=== PATIENT | male | born 1965 | race Two or more races ===

== ENCOUNTER 2019-08-30 12:02 | Emergency (ER) | payer MEDICAID ==
[~2019-08-30] VITALS: Ht 160 cm; Wt 78.0 kg
[2019-08-30] MEDS ORDERED: HYDROCODONE/ACETAMINOPHEN 5/325MG TABLET PO ONE (15:15)
[2019-08-30] MEDS ORDERED: ONDANSETRON 4MG ODT PO ONE (15:15)
[2019-08-30 16:23] VITALS: BP 126/89
== END 2019-08-30 17:04 | disposition home or self-care (01) ==
LOC: ER 12:02
DX: S09.8XXA Other specified injuries of head, initial encounter (principal); S40.011A Contusion of right shoulder, initial encounter; S20.219A Contusion of unspecified front wall of thorax, initial encounter; V43.72XA Person on outside of car injured in collision with other type car in traffic accident, initial encounter; Y92.410 Unspecified street and highway as the place of occurrence of the external cause; Y93.55 Activity, bike riding
CPT/HCPCS: 70450; 70486; 71250; 72125; 73030; 99285; Q0162